=== PATIENT | female | born 1975 | race Caucasian/White ===

== ENCOUNTER → 2019-08-09 09:06 | Outpatient (CLI) | payer BC, SELFPAY ==
[2019-08-09 10:29] LABS: Hematocrit 42.5 % (37-47); Hemoglobin 13.6 g/dL (12.0-15.0); Mean Corpuscular Volume 93.6 fL (81-99); Mean Platelet Vol. 11.1 fl (6.2-12.0); Platelet Count 284 K/mm3 (150-450); Red Blood Count 4.54 M/mm3 (4.2-5.4); White Blood Count 11.2 K/mm3 (4.4-11.0)
[2019-08-09 10:46] LABS: ALB/GLOB Ratio 0.8 RATIO (0.9-2.4); AST(SGOT) 16 U/L (15-37); Alanine Aminotransfer ALT/SGPT 27 U/L (13-56); Albumin, Serum 3.3 g/dL (3.2-5.0); Alkaline Phosphatase 72 U/L (45-117); Anion Gap 6 (5-15); BUN 16 mg/dL (7-18); BUN/Creat Ratio 20.4 RATIO (10-20); Chloride 104 mmol/L (98-107); Cholesterol 213 mg/dL (200); Creatinine, Serum 0.79 mg/dL (0.55-1.02); EST Glomerular Filtration Rate 84 mL/min (>60); Est Glom Filt Rate - Afr Amer 101 mL/min (>60); Glucose 120 mg/dL (74-106); High Density Lipoprotein 40 mg/dL; Potassium 4.1 mmol/L (3.5-5.1); Protein, Total 7.3 g/dL (6.4-8.2); Sodium Level 136 mmol/L (136-145); Triglycerides 134 mg/dL; Very Low Density Lipoprotein 27 mg/dL (5-40)
== END ==
PROVIDERS: Family Provider Nurse Practitioner Family; PCP Nurse Practitioner Family; Referring Provider Nurse Practitioner Family; Visit Provider Nurse Practitioner Family
DX: G43.109 Migraine with aura, not intractable, without status migrainosus (principal); E78.5 Hyperlipidemia, unspecified
CPT/HCPCS: 36415; 80053; 80061; 85027

== ENCOUNTER → 2020-03-02 09:46 | Outpatient (CLI) | payer BC, SELFPAY ==
[2020-03-03 07:37] LABS: SARS-COV-2 TOTAL ABS Reactive (Nonreactive)
== END ==
PROVIDERS: PCP Nurse Practitioner Family; Referring Provider Nurse Practitioner Family; Visit Provider Nurse Practitioner Family
DX: U07.1 COVID-19 (principal)
CPT/HCPCS: 86769; G2023

== ENCOUNTER → 2020-10-15 08:54 | Outpatient (CLI) | payer BC, SELFPAY ==
[2020-08-27 09:08] VITALS: BMI 39.7
--- NOTE | 2020-10-15 08:56 | US_ITS ---
STUDY: ULTRASOUND BREAST - LEFT REASON FOR EXAM: Female, 45 years old. Pain in the left breast. TECHNIQUE: Axial and longitudinal images of the LEFT breast were performed with a high resolution ultrasound transducer. # OF IMAGES: 40 COMPARISON: Comparison is made with prior mammogram done earlier today. FINDINGS: LEFT Breast: The lateral half of the left breast was examined by ultrasound. No sonographic abnormality is seen. US/Breast Complete Unilateral IMPRESSION: No sonographic abnormality is seen. ASSESSMENT CATEGORY: BIRADS Category 1: Negative. A letter regarding these results will be sent to the patient by the facility within 30 days. Electronically Signed: Chino Pacheco MD at 15:16 EST , Service support ,
--- NOTE | 2020-10-15 08:56 | BI_ITS ---
MAMMOGRAPHY - BILATERAL DIAGNOSTIC REASON FOR EXAM: Female, 45 years old. Left lateral breast pain. PERTINENT HISTORY: Non-contributory. TECHNIQUE: Digital bilateral breast tracie (3D mammographic acquisition) in the CC and MLO projections. 2-D mediolateral oblique (MLO) and craniocaudad (CC) views of both breasts were obtained. CAD: Full Field Digital Mammography with Computer Added Detection was performed. COMPARISON: None. Baseline examination. FINDINGS: Breast Composition: The breasts are heterogeneously dense, which may obscure small masses. There are no dominant masses or suspicious calcifications. No other significant abnormalities are identified. BI/DIAG MAMM W/CAD, BILAT IMPRESSION: Negative diagnostic mammogram. With the patient''s history of left breast pain, correlation with ultrasound is recommended. ASSESSMENT CATEGORY: BIRADS Category 0: Incomplete. Need additional imaging evaluation. A letter regarding these results will be sent to the patient by the facility within 30 days. Approximately 10% of breast cancers are not detected by mammography. A normal mammogram should not delay biopsy of a clinically suspicious abnormality. Electronically Signed: Chino Pacheco MD at 10:58 EST , Service support ,
== END ==
PROVIDERS: PCP Nurse Practitioner Family; Referring Provider Nurse Practitioner Women's Health; Visit Provider Nurse Practitioner Women's Health
DX: N64.4 Mastodynia (principal)
CPT/HCPCS: 76641; 77062; 77066; G0279

== ENCOUNTER → 2021-01-21 16:25 | Outpatient (CLI) | payer BC, SELFPAY ==
[2021-01-21 13:23] VITALS: BMI 39.7
[2021-01-25 08:40] LABS: HPV APTIMA, High Risk Positive (Negative)
== END ==
PROVIDERS: PCP Nurse Practitioner Family; Visit Provider Nurse Practitioner Women's Health
DX: Z12.4 Encounter for screening for malignant neoplasm of cervix (principal)
CPT/HCPCS: 87624; 88175; G0145

== ENCOUNTER → 2021-01-26 10:18 | Outpatient (CLI) | payer BC, SELFPAY ==
[2021-01-21 13:23] VITALS: BMI 39.7
--- NOTE | 2021-01-26 10:20 | US_ITS ---
STUDY: ULTRASOUND OF THE FEMALE PELVIS - COMPLETE REASON FOR EXAM: Female, 45 years old. bleeding, cramping LMP: 01/05/2021 TECHNIQUE: Transabdominal and Transvaginal TECHNICAL QUALITY: Adequate. COMPARISON: None. FINDINGS: The uterus is retroflexed and is in a midline position. The uterus measures 9.5 x 7.7 x 6.5 cm. There is a Nabothian cyst of the cervix. The endometrium measures 11 mm in thickness, and is hyperechoic. There is no demonstrated endometrial mass. There is no demonstrated myometrial mass. I.U.D. - The patient does not have an I.U.D. The right ovary is visualized. The right ovary measures 2.2 x 2.3 x 2.5 cm. There is no right ovarian cyst or ovarian mass. There is no visualized right adnexal mass or complex lesion. There is normal arterial and normal venous vascularity. The left ovary is visualized. The left ovary measures 4.4 x 2.5 x 2.9 cm. There is no left ovarian cyst or ovarian mass. There is no visualized left adnexal mass or complex lesion. There is normal arterial and normal venous vascularity. There is no fluid in the cul-de-sac. The pre void volume of the bladder was ml. The post void volume of the bladder was ml. Polycystic ovary disease: No. US/Transvaginal Non- IMPRESSION: Normal female pelvis. Electronically Signed: Dileep Hart MD at 8:55 EDT Tel , Service support ,
--- NOTE | 2021-01-26 10:20 | US_ITS ---
STUDY: ULTRASOUND OF THE FEMALE PELVIS - COMPLETE REASON FOR EXAM: Female, 45 years old. bleeding, cramping LMP: 01/05/2021 TECHNIQUE: Transabdominal and Transvaginal TECHNICAL QUALITY: Adequate. COMPARISON: None. FINDINGS: The uterus is retroflexed and is in a midline position. The uterus measures 9.5 x 7.7 x 6.5 cm. There is a Nabothian cyst of the cervix. The endometrium measures 11 mm in thickness, and is hyperechoic. There is no demonstrated endometrial mass. There is no demonstrated myometrial mass. I.U.D. - The patient does not have an I.U.D. The right ovary is visualized. The right ovary measures 2.2 x 2.3 x 2.5 cm. There is no right ovarian cyst or ovarian mass. There is no visualized right adnexal mass or complex lesion. There is normal arterial and normal venous vascularity. The left ovary is visualized. The left ovary measures 4.4 x 2.5 x 2.9 cm. There is no left ovarian cyst or ovarian mass. There is no visualized left adnexal mass or complex lesion. There is normal arterial and normal venous vascularity. There is no fluid in the cul-de-sac. The pre void volume of the bladder was ml. The post void volume of the bladder was ml. Polycystic ovary disease: No. US/Pelvic (Non ) IMPRESSION: Normal female pelvis. Electronically Signed: Dileep Hart MD at 8:55 EDT Tel , Service support ,
== END ==
PROVIDERS: PCP Nurse Practitioner Family; Referring Provider Nurse Practitioner Women's Health; Visit Provider Nurse Practitioner Women's Health
DX: N94.6 Dysmenorrhea, unspecified (principal); N92.0 Excessive and frequent menstruation with regular cycle
CPT/HCPCS: 76830; 76856

== ENCOUNTER → 2021-03-14 | Outpatient (CLI) | payer BC, SELFPAY ==
[2021-03-14 13:18] VITALS: BMI 36.3
--- NOTE | 2021-03-14 13:30 | CER_PTH ---
PATIENT: BERNARD BARRETO LOC: [facility]#:[id number] AGE/SX: 45/F ROOM: RE03/14/[address]: Dr. Tressa Gonzalez MD : 1975 BED: DIS: 03/14/2021 SPEC #: [id number] RECD: 03/14/21 15:06 STATUS: BRIAN REChandni #: [id number] CARMEL: 03/14/21 13:[address]: Tressa Gonzalez DEPT: SURGICAL PATHOLOGY RECD BY: Enid Gauthier ENTERED: 03/15/21 09:10 SP TYPE: CERV OTHR DR: Aria Quintero, PATIENT PARTNER-C Tissues: A - Endocervical B - Uterine cervix, NOS Procedures: Surgery Specimen Level IV HEADER OPERATION: Colposcopy PRE-OP DIAGNOSIS: ASCUS HPV positive TISSUE SUBMITTED: A ? ECC, B ? 11 o?clock MICROSCOPIC DIAGNOSIS A. ECC: A few fragments of squamous epithelium, no pathologic diagnosis. Negative for dysplasia. B. Cervix, 11 o?clock, biopsy: A fragment of squamous mucosa, negative for dysplasia. See comment. CRISTINE:pedro 03/18/2021 COMMENT B. Transition zone mucosa is not seen. Clinical correlation and appropriate follow up are necessary. MICROSCOPIC DESCRIPTION Slides are reviewed. GROSS DESCRIPTION A - Received in fixative is one container labeled with the patient's name and designated ECC. The specimen consists of a scant amount of soft tissue. The specimen is totally submitted for cell block preparation. B - Received in fixative is one container labeled with the patient's name and designated 11 o'clock. The specimen consists of one irregular fragment of light mckinnon soft tissue that measures 0.5 x 0.4 x 0.2 cm. The specimen is totally submitted in one cassette. / CRISTINE:pedro 03/15/21 TC:4 CPT: 08174 x2
== END | disposition home or self-care (01) ==
LOC: LABSPEC 15:20
PROVIDERS: PCP Nurse Practitioner Family; Referring Provider Obstetrics & Gynecology; Visit Provider Obstetrics & Gynecology
DX: R87.610 Atypical squamous cells of undetermined significance on cytologic smear of cervix (ASC-US) (principal)
CPT/HCPCS: 88305

== ENCOUNTER → 2022-02-11 | Outpatient (CLI) | payer BC, SELFPAY ==
--- NOTE | 2022-02-11 10:20 | CT_ITS ---
STUDY: CTA CHEST REASON FOR EXAM: Female, 46 years old. PULMONARY EMBOLISM, BILATERAL RADIATION DOSAGE (If Supplied By Facility): CTDIvol = ( 10.74 ) mGy, DLP = ( 477.88 ) mGycm TECHNIQUE: The examination was performed with the intravenous administration of IV 75mL Isovue-370. Post-processing of the angiographic images was performed, with multiplanar reformation and 3D reconstruction. Individualized dose optimization techniques were used for this CT. COMPARISON: None. FINDINGS: Normal enhancement of the main pulmonary artery and right and left pulmonary arteries. Normal enhancement of the bilateral peripheral pulmonary arteries. There is no demonstrated pulmonary embolism. Normal thoracic aorta and visualized great vessels. There is no demonstrated aortic dissection. Normal heart and pericardium. Normal mediastinum. Normal hilar regions. Normal visualized trachea and bronchi. The lungs are well expanded. Normal pulmonary parenchyma. Normal pleura. Normal chest wall structures. Normal osseous structures. Normal visualized upper abdomen. CT/CTA Chest W/WO Contrast IMPRESSION: Normal CTA chest examination, without a demonstrated pulmonary embolism or arterial dissection. Electronically Signed: Dileep Hart MD at 14:09 EDT ,
== END | disposition home or self-care (01) ==
LOC: CT 10:17
PROVIDERS: PCP Nurse Practitioner Family; Visit Provider Nurse Practitioner Family
DX: I26.99 Other pulmonary embolism without acute cor pulmonale (principal)
CPT/HCPCS: 71275; Q9967

== ENCOUNTER 2022-05-13 08:15 | Day surgery (SDC) | payer BC, SELFPAY ==
--- NOTE | 2022-05-07 16:29 | EKG12_ITS ---
Test Reason : PRE-OP Blood Pressure : / mmHG Vent. Rate : 059 BPM Atrial Rate : 059 BPM P-R Int : 146 ms QRS Dur : 090 ms QT Int : 410 ms P-R-T Axes : 054 048 033 degrees QTc Int : 405 ms Sinus bradycardia Otherwise normal ECG Confirmed by MANDY BOYD, CLAYTON ([id number]), graphics editor MONIK CHEN ([id number]) on 05/08/2022 10:00:39 AM Referred By: Aria Quintero Confirmed By:CLAYTON GALVAN MD
--- NOTE | 2022-05-07 16:40 | RAD_ITS ---
STUDY: X-RAY CHEST REASON FOR EXAM: Female, 47 years old. PREOP TECHNIQUE: PA and lateral views of the chest. COMPARISON: None. FINDINGS: The lungs are clear and expanded. There is no demonstrated pleural abnormality. Normal size heart. Normal mediastinum and milo. Normal visualized pulmonary arteries. Normal visualized aortic arch and descending thoracic aorta. Normal visualized thoracic spine. Normal visualized ribs, clavicles, and shoulders. There is no demonstrated abnormality of the visualized soft tissue structures of the upper abdomen. RAD/Chest PA and Lateral IMPRESSION: Normal x-ray examination of the chest. Electronically Signed: Dileep Hart MD at 16:52 EDT ,
[2022-05-07 17:26] LABS: Absolute Lymphocyte Count 2.59 X10^3/uL (0.83-4.51); Absolute Neutrophil Count 4.5 X10^3/uL (2.0-7.7); Basophil# 0.04 X10^3/uL; Basophil% 0.5 % (0-1); Eosinophil# 0.19 X10^3/uL; Eosinophils% 2.4 % (0-5); Hematocrit 41.4 % (37-47); Hemoglobin 14.1 g/dL (12.0-15.0); Lymphocyte # 2.59 X10^3/ul (0.83-4.51); Lymphocyte % 32.5 % (19-41); Mean Corp Hgb Conc 34.1 g/dL (32-36); Mean Corpuscular Hgb 31.1 pg (27.0-32.0); Mean Corpuscular Volume 91.2 fL (81-99); Monocyte% 7.5 % (0-10); NRBC Flagged by Analyzer 0 % (0-5); Neutrophil # 4.53 X10^3/uL (2.7-7.7); Neutrophil % 56.7 % (47-70); Platelet Count 254 K/mm3 (150-450); RBC Distribution Width CV 12.1 % (11.6-14.6); RBC Distribution Width SD 40.4 fl (35.1-43.9); Red Blood Count 4.54 M/mm3 (4.2-5.4)
[2022-05-07 17:58] LABS: ALB/GLOB Ratio 0.9 RATIO (0.9-2.4); AST(SGOT) 52 U/L (15-37); Alanine Aminotransfer ALT/SGPT 65 U/L (13-56); Albumin, Serum 3.5 g/dL (3.2-5.0); Alkaline Phosphatase 61 U/L (45-117); Anion Gap 10 (5-15); BUN 11 mg/dL (7-18); BUN/Creat Ratio 12.9 RATIO (10-20); Calcium,Total 9.2 mg/dL (8.5-10.1); Chloride 103 mmol/L (98-107); Creatinine, Serum 0.86 mg/dL (0.55-1.02); EST Glomerular Filtration Rate 75 mL/min (>60); Est Glom Filt Rate - Afr Amer 91 mL/min (>60); Globulin 3.7 g/dL (2.2-4.2); Glucose 114 mg/dL (74-106); Potassium 4.2 mmol/L (3.5-5.1); Protein, Total 7.2 g/dL (6.4-8.2); Sodium Level 139 mmol/L (136-145)
[2022-05-07 19:10] LABS: D-Dimer Quantitative (DVT/PE) 1.94 FEU/ug/m (0.27-0.49)
[2022-05-08 12:29] LABS: Magnesium 2.1 mg/dL (1.6-2.6)
--- NOTE | 2022-05-12 13:23 | HP.PCM_ITS ---
History and Physical Date of Admission: 05/13/22 MR#: [id number] Acct: [id number] Name:?? BERNARD BARRETO Rep #: [id number] :? 1975 ?? ? Provider: Dr. Mary Lopez, DO Age/Sex:?? 47/F ? Location: [facility] [place] Status: Signed Intake Vital Signs ? 04/23/2208:25 04/23/2208:27 Height 5 ft 3 in 5 ft 3 in Weight: 197 lb 8 oz ? BMI 34.9 ? BP 131/84 H ? Intake Visit Reasons:?TVH Chief Complaint: 2w incision check Child Welfare Director Required: No Is patient in pain?: No Allergies No Known Allergies Allergy (Verified 04/23/22 08:25) Medications atenolol 25 mg tablet 25 mg PO DAILY 01/21/21 [History Confirmed 04/23/22] fluoxetine 20 mg capsule 20 mg PO DAILY 01/21/21 [History Confirmed 04/23/22] ondansetron HCl 4 mg tablet (Zofran) 4 mg PO Q8H PRN 01/21/21 [History Confirmed 04/23/22] spironolactone 100 mg tablet 100 mg PO DAILY 01/21/21 [History Confirmed 04/23/22] sumatriptan succinate 25 mg tablet See Rx Instructions PO .COMPLEX 01/21/21 [History Confirmed 04/23/22] norethindrone acetate 5 mg tablet 5 mg PO TID PRN heavy bleeding? 30 days #90 tabs 08/02/21 [Rx Confirmed 04/23/22] norethindrone acetate 5 mg tablet (Aygestin) 5 mg PO .COMPLEX #45 tabs 08/23/21 [Rx Confirmed 04/23/22] apixaban 5 mg tablet (Eliquis) 5 mg PO BID 04/23/22 [History Confirmed 04/23/22] Post menopausal: No Patient : No : No PFSH Medical History?(Updated 04/23/22 @ 08:35 by Helga Hernández) ASCUS with positive high risk HPV Depression Dysmenorrhea Enlarged uterus History of pulmonary embolism HTN (hypertension) Migraines Mitral valve prolapse Surgical History? H/O LEEP Social History? household members:? spouse and children? number of children:? 3? current occupational status:? employed? 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 history of recent travel:? No? sexually active:? Yes? Smoking Status:? Never smoker? alcohol intake:? current alcohol intake frequency: a few times a month? substance use type:? does not use? what type of physical activity do you participate in:? none? seatbelt use:? always? do you feel safe at home:? Yes? additional social history:? - Bakari? [facility] Details:? BERNARD BARRETO is a 47 year old who presents for a preop total robotic hysterectomy bilateral salpingectomy cystoscopy. She was on norethindrone ( and still is) when she experienced a pulmonary embolism. She states that she is on blood thinners now x 6 months and will have further imaging of her chest. If clots are gone she will be taken off the medication. She is requesting d efinitive treatment for her bleeding. SHe has a h/o 3 prior vaginal deliveries. Her uterus measures 9 cm and there are no ovarian masses or cysts. No fibroids noted. She took OCPs for over 20 years prior to the of her child, who is now 16 so it is unknown if the norethindrone caused the PE or is related to past covid infection.? She will see her PCP to help bridge Eliquis to heparin for surgery.? ROS Const ROS Unobtainable: All systems reviewed & are unremarkable except as noted in H ENT ENT: Reports system reviewed and no additional complaints, except as documented Cardio Card: Reports system reviewed and no additional complaints, except as documented Resp Resp: Denies cough, dyspnea or dyspnea on exertion GI GI: Denies abdominal pain, bloating or change in bowel habits : Denies vaginal odor or vaginal pruritus Details:? lochia is mild? Musc Musc: Reports system reviewed and no additional complaints, except as documented Psych Psych: Reports system reviewed and no additional complaints, except as documented Exam Const General: cooperative, healthy appearing and comfortable Neck Neck: normal visual inspection Chest Chest palpation & inspection: normal inspection of the chest Resp Effort & Inspection: normal respiratory effort GI Inspection: normal to inspection and non-distended Palpation: soft and nontender Rectal Exam: other Other:? incision is clean, dry, intact? Other:? exam deferred today Skin General: no rashes or lesions noted Neuro General: patient alert, patient awake and patient oriented x3 Extrem General: no edema Psych Appearance: grossly normal Speech and Movement: speech and movement normal Coding Level of Care Code Off vis,est,level 5 Diagnoses Enlarged uterus? N85.2 Dysmenorrhea? N94.6 Menorrhagia with regular cycle? N92.0 Assessment and Plan Assessment and Plan (1) Enlarged uterus:?Status:?Acute (2) Dysmenorrhea:?Status:?Acute (3) Menorrhagia with regular cycle:?Status:?Acute Plan After discussing the patient's diagnosis and treatment plan options, patient wishes to proceed with surgical management.? Due to the patient's mild obesity and her history of PE with subsequent treatment with Eliquis the decision was made to proceed with a robotic hysterectomy rather than a vaginal hysterectomy to ensure adequate hemostasis during the procedure and for better visualization due to obesity.? ?I have discussed with the patient the risks, benefits, and alternatives of the procedure which include but are not limited to risks of anesthesia, bleeding, infection, possible damage to bowel, bladder, or surrounding vasculature which could lead to additional surgery to evaluate any complications.? Patient agrees to procedure and wishes to proceed.? ACOG/uptodate references given for additional information regarding procedure.?? The patient's primary provider for Eliquis recommends to stop the medication 2 days before the day of surgery and to resume 24 hours after hemostasis is achieved. UPDATE- I have seen the patient and performed any clinically relevant updates to the history and physical exam. Mary Lopez, DO
[2022-05-13] VITALS (11 sets, daily range): BP systolic 114–141; BP diastolic 61–85; PULSE 62–82; RESP 16–18; TEMP 36.3–36.5; O2SAT 97–100; BMI 35.2
--- NOTE | 2022-05-13 | HYST_PTH ---
PATIENT: BERNARD BARRETO LOC: [facility] [place] U#:[id number] AGE/SX: 47/F ROOM: RE05/13/[address]: Dr. Mary Lopez DO : 1975 BED: DIS: 05/13/2022 SPEC #: [id number] RECD: 05/13/22 13:23 STATUS: BRIAN BRANDEN #: [id number] CARMEL: 05/13/22 00:[address]: Mary Lopez DEPT: SURGICAL PATHOLOGY RECD BY: Nolberto Rinaldi ENTERED: 05/13/22 13:23 SP TYPE: HYSTERECT OTHR DR: Aria Quintero, FUNERAL HOME DIRECTOR-C Tissues: Uterus, NOS Procedures: Surgery Specimen Level V HEADER OPERATION: ERAS, lap robotic hysterectomy, bilateral salpingectomy PRE-OP DIAGNOSIS: Enlarged uterus, dysmenorrhea, menorrhagia TISSUE SUBMITTED: Cervix, uterus, bilateral fallopian tubes MICROSCOPIC DIAGNOSIS Uterus, hysterectomy: Cervix ? nabothian cysts, squamous metaplasia and mild chronic inflammation. Endometrium ? transition endometrium with focal cystic change. Myometrium ? leiomyomas and adenomyosis. Right and left fallopian tubes - No pathologic change. AM:pedro 05/14/2022 MICROSCOPIC DESCRIPTION Slides are reviewed. GROSS DESCRIPTION Received in fixative is one container labeled with the patient's name and designated uterus. The specimen consists of a uterus with attached cervix and attached right and left fallopian tubes. The uterus with cervix measures 12 x 8 x 6.5 cm and weighs 213 gm. The ectocervix is unremarkable. The cervical os is oval in contour. The endocervical canal measures 4 cm in length and is grossly unremarkable. The triangular endometrial cavity measures 4.5 x 4.5 cm. The light mckinnon endometrium measures up to 0.2 cm in thickness. The myometrium measures 3 cm in greatest thickness and contains multiple rubbery white-mckinnno nodules ranging in size from 0.6 to 1 cm. The right and left fallopian tubes are similar in appearance with average lengths of 6 cm and average diameters of 0.6 cm. No distinct fimbriated end is identified in the left fallopian tube. Wood Buffer sections are submitted in nine cassettes as follows: 1 - anterior cervix, 2 - posterior cervix, 3 & 4 - anterior uterine wall, 5 & 6 - posterior uterine wall, 7 - myometrial nodules, 8 - right fallopian tube, 9 - left fallopian tube. / AM:pedro 05/13/2022 TC:1 CPT: 99971
[2022-05-13 08:40] LABS: Internal QC Validated? YES +Cl - CLEAR BKGD; Pregnancy, Urine Negative Negative
[2022-05-13] MEDS: Gabapentin 600 MG Tablet PO (08:45)
[2022-05-13] MEDS: Acetaminophen 500 MG Tablet 1000 MG PO (08:45)
[2022-05-13] MEDS: Lactated Ringers 1,000 ML 40 ML IV (08:45)
[2022-05-13] MEDS: Celecoxib 200 MG Capsule 400 MG PO (08:45)
--- NOTE | 2022-05-13 09:01 | PCM.DC ---
Discharge Instructions Diet Discharge Diet: No restrictions Activity May resume sexual activity in: 6 weeks Weight Bearing Status: Full weight bearing Dressing / Incision Call your doctor if your incision/area has: Continuous Slow Oozing, Sudden Increased Bleeding, Increased Pain/ Swelling, Increased Redness and Foul Smelling Discharge Call your doctor if you observe: Fever of 101 or Higher, Using more than 1 pad per hour, Shortness of breath, Chest pain and Uncontrolled pain Suture Line Care: Avoid Pulling/Pushing and Avoid Pinching/Bending Remove Dressing in: 1 week (if present) Cleanse incision/area with: Soap & Water and Keep Dressing Clean & Dry Follow Up Care Please Follow Up With: Mary Lopez DO When: Call to make an appointment with your doctor for a postop visit in 2 and 6 weeks Test Results: Test results from this visit will be discussed in further detail at your follow-up appointment, if applicable. Discharge Plan Admission Primary Reason for Your Visit: hysterectomy Attending Provider: Mary Lopez Primary Care Provider: Aria Quintero NP Discharge Orders/Prescriptions Prescriptions: New ibuprofen 600 mg tablet 600 mg PO Q6H PRN (Reason: pain) 7 Days Qty: 28 0RF Rx Instructions: one tab every 6 hrs as needed for mild to moderate pain oxycodone-acetaminophen [Percocet] 5-325 mg tablet 1 tab PO Q4H PRN (Reason: pain) 7 Days Qty: 30 0RF Continued spironolactone 100 mg tablet 100 mg PO DAILY atenolol 25 mg tablet 25 mg PO DAILY fluoxetine 20 mg capsule 20 mg PO DAILY sumatriptan succinate 25 mg tablet See Rx Instructions PO .COMPLEX Rx Instructions: take 1 tab at onset of headache; if no relief may repeat 1 tab after at least 2 hrs; max = 4 tabs/24 hr PO ondansetron HCl [Zofran] 4 mg tablet 4 mg PO Q8H PRN (Reason: Nausea) Eliquis 5 mg tablet 5 mg PO BID Qty: 60 0RF Rx Instructions: start on post op day #2 () Discontinued norethindrone acetate 5 mg tablet 5 mg PO TID PRN (Reason: heavy bleeding ) 30 Days Qty: 90 3RF Rx Instructions: take 3 times a day until bleeding stops during menses only as needed for heavy bleeding norethindrone acetate [Aygestin] 5 mg tablet 5 mg PO .COMPLEX Qty: 45 0RF Rx Instructions: 5 mg PO tid until bleeding stops X 24 hr then bid to finish Rx Referrals / Follow Up: Aria Quintero NP, MARKETING CAMPAIGN ANALYST-C [Primary Care Provider] - Disposition Disposition (needs filled in before D/C Order can be placed): Home, Self Care
[2022-05-13] MEDS: Insulin Lispro 100 UNIT/ML INSULN.PEN SC (09:03)
[2022-05-13] MEDS: Cefazolin 2 GM in 0.9% Normal Saline 100 ML IV (09:20)
[2022-05-13] MEDS: Ondansetron 4 MG/2 ML Vial IV (09:23)
[2022-05-13 09:35] LABS: Bedside Glucose 213 mg/dL (74-106)
[2022-05-13] MEDS: Bupivacaine 0.25% 30 ML Vial (09:55)
[2022-05-13] MEDS: Lactated Ringers @ 40 MLS/HR 40 ML IV (10:31)
--- NOTE | 2022-05-13 10:47 | PCM.OP.BLANK ---
Problems Associated Problem List Diagnoses (1) Menorrhagia with regular cycle: (2) ASCUS with positive high risk HPV cervical: (3) Enlarged uterus: (4) Dysmenorrhea: Operative Report Date of Procedure: 05/13/22 Preoperative diagnosis:menorrhagia, on anticoagulants, enlarged uterus Postoperative diagnosis: menorrhagia, on anticoagulants, enlarged uterus Procedure: Total robotic hysterectomy bilateral salpingectomy Anesthesia: General endotracheal intubation Estimated blood loss: 30cc Urine output: 125cc Drains: None Implanted material: None Complications: None Findings: 10 cm size uterus, normal appearing ovaries and tubes. On exploration of the abdominal cavity the uterus, adnexa, bowel, and liver were found to be normal. Specimens removed: Uterus and cervix, [Bilateral tubes and ovaries] Reason for surgery: This is a 47-year-old who presented to my office with history of menorrahgia, and an enlarged uterus. She is not a candidate for conservative hormonal therapy due to current use of anticoagulation due to PE earlier this year. the planned procedure is for a robotic hysterectomy the risks benefits and alternatives were discussed with the patient the patient had a clear understanding of the procedure and a consent form was signed. Procedure: The patient was placed in the dorsal low lithotomy position and prepped and draped in the normal sterile fashion both abdominally and in the perineum. Her legs were placed in stirrups a Mcmahon catheter was inserted into the urethra without difficulty. A weighted speculum was placed in the vagina and a single-tooth tenaculum was used to grasp the anterior lip of the cervix. An advincula uterine manipulator was inserted through the cervix without complication. It was then tied into place at the 2 and 10:00 locations on the cervix. Gloves were changed and attention was turned towards the abdomen. Approximately 23 cm above the pubic symphysis in the midline, and after Marcaine injection, a 8 mm incision was made. An 8 mm trocar was inserted through the laparoscope, then inserted into the abdomen under direct visualization using the laparoscope. Good abdominal placement was noted and no complications were appreciated. An air seal device was utilized to create pneumoperitoneum. At 12 cm lateral to the midline on the left and right sides 8 mm accessory ports were placed. Next a left upper quadrant 8 mm assistant guest services manager port site was placed. The patient was placed in steep Trendelenburg position. The robot was docked. The hysterectomy was initiated first by taking down the round ligament on each side using the vessel sealer device. The fallopian tubes were removed with the vessel sealer device but cauterizing the mesosalpinx. The broad ligament was then and taken down using the vessel sealer device. Next the bladder flap was taken down without complication. This was done using monopolar cautery to the level of the cervical vaginal junction. After the bladder flap was created, uterine vessels were then isolated and cauterized using the vessel sealer device and EndoShears. At this point the uterine vessels were taken down further starting from the ascending branch, dissecting along the edges of the cervix to the level of the cervical vaginal junction with hemostasis appreciated. The cervical vaginal junction was then using monopolar cautery in a circumferential pattern across the superior aspect of the cervix. The specimen was delivered through the vagina and sent to pathology. The remaining vaginal cuff was then closed using OV lock suture. This was performed in a running technique. Excellent hemostasis was obtained and good closure was noted. Irrigation was then performed. All operative sites were noted to be hemostatic. The abdominal cavity was again examined using the laparoscope after the robot was undocked. All operative sites were noted to be hemostatic. The trochars were removed under direct visualization without complication and pneumoperitoneum was reduced. At this point the skin was then closed using 4-0 Monocryl subcuticular stitch and sealed with surgical glue. The patient tolerated the procedure well sponge lap and needle counts were correct x2 the patient was taken to the recovery room in stable condition. Multi Select Codes Urinary/Genital Urinary/Genital CPT Codes: 10692 TLH+BS/O <250gr uterus
[2022-05-13 11:40] LABS: Bedside Glucose 157 mg/dL (74-106)
== END 2022-05-13 14:53 | disposition home or self-care (01) ==
LOC: SDC 08:17 → AC 08:17
PROVIDERS: Anesthesiology; Obstetrics & Gynecology; PCP Nurse Practitioner Family; Referring Provider Obstetrics & Gynecology; Visit Provider Obstetrics & Gynecology
PROC: 0UT90ZZ Resection of Uterus, Open Approach (ICD-10-PCS; CPT 58571; principal; 2022-05-13 09:50)
DX: N87.0 Mild cervical dysplasia (principal); D25.9 Leiomyoma of uterus, unspecified; N80.0 Endometriosis of uterus; N88.8 Other specified noninflammatory disorders of cervix uteri; I34.1 Nonrheumatic mitral (valve) prolapse; F32.A Depression, unspecified; I10 Essential (primary) hypertension; Z79.899 Other long term (current) drug therapy; Z86.711 Personal history of pulmonary embolism; Z79.01 Long term (current) use of anticoagulants; N92.0 Excessive and frequent menstruation with regular cycle; N85.2 Hypertrophy of uterus
CPT/HCPCS: 58571; 36415; 71046; 80053; 81025; 82962; 83735; 85025; 85379; 86850; 86900; 86901; 88307; 93005; J7120; J2405; J3475

== ENCOUNTER → 2022-05-23 | Outpatient (CLI) | payer BC, SELFPAY | END | disposition home or self-care (01) | LOC: LABSPEC 13:00 | PROVIDERS: PCP Nurse Practitioner Family; Visit Provider Obstetrics & Gynecology | DX: R30.0 Dysuria (principal) | CPT/HCPCS: 87086; 87088 ==

== ENCOUNTER → 2023-07-09 | Outpatient (CLI) | payer BC, SELFPAY ==
[2023-07-09 17:42] LABS: Absolute Neutrophil Count 3.8 X10^3/uL (2.0-7.7); Basophil# 0.05 X10^3/uL; Basophil% 0.6 % (0-1); Eosinophil# 0.22 X10^3/uL; Eosinophils% 2.8 % (0-5); Hematocrit 42.7 % (37-47); Hemoglobin 13.9 g/dL (12.0-15.0); Lymphocyte % 37.3 % (19-41); Mean Corp Hgb Conc 32.6 g/dL (32-36); Mean Corpuscular Hgb 30.3 pg (27.0-32.0); Mean Corpuscular Volume 93.2 fL (81-99); Mean Platelet Vol. 10.8 fl (6.2-12.0); Monocyte# 0.77 X10^3/uL; Monocyte% 9.9 % (0-10); NRBC Flagged by Analyzer 0 % (0-5); Neutrophil # 3.79 X10^3/uL (2.7-7.7); Neutrophil % 48.9 % (47-70); Platelet Count 247 K/mm3 (150-450); RBC Distribution Width CV 12.2 % (11.6-14.6); RBC Distribution Width SD 41.6 fl (35.1-43.9); Red Blood Count 4.58 M/mm3 (4.2-5.4); White Blood Count 7.8 K/mm3 (4.4-11.0)
[2023-07-09 18:21] LABS: ALB/GLOB Ratio 0.9 RATIO (0.9-2.4); AST(SGOT) 52 U/L (15-37); Alanine Aminotransfer ALT/SGPT 79 U/L (13-56); Albumin, Serum 3.7 g/dL (3.2-5.0); Alkaline Phosphatase 79 U/L (45-117); Anion Gap 4 (5-15); BUN 7 mg/dL (7-18); BUN/Creat Ratio 8.1 RATIO (10-20); Calcium,Total 9.3 mg/dL (8.5-10.1); Chloride 104 mmol/L (98-107); Cholesterol 221 mg/dL (200); Creatinine, Serum 0.87 mg/dL (0.55-1.02); EST Glomerular Filtration Rate 74 mL/min (>60); Est Glom Filt Rate - Afr Amer 89 mL/min (>60); Glucose 165 mg/dL (74-106); High Density Lipoprotein 39 mg/dL; Magnesium 2.3 mg/dL (1.6-2.6); Potassium 3.5 mmol/L (3.5-5.1); Protein, Total 7.7 g/dL (6.4-8.2); Sodium Level 136 mmol/L (136-145); Thyroid Stim Hormone (TSH) 1.08 uIU/mL (0.358-3.74); Triglycerides 158 mg/dL; Very Low Density Lipoprotein 32 mg/dL (5-40)
[2023-07-09 19:04] LABS: Hemoglobin A1c 7.8 % (3.8-5.6)
[2023-07-10 07:46] LABS: Vitamin B12 697 pg/mL (211-911); Vitamin D,25 Hydroxy 40.2 ng/mL
== END | disposition home or self-care (01) ==
LOC: MFPLAB 14:59
PROVIDERS: PCP Family Medicine; Visit Provider Family Medicine
DX: I10 Essential (primary) hypertension (principal); F32.A Depression, unspecified
CPT/HCPCS: 36415; 80053; 80061; 82306; 82607; 83036; 83735; 84443; 85025

== ENCOUNTER → 2023-09-07 | Outpatient (CLI) | payer BC, SELFPAY ==
[2023-09-07 10:54] LABS: Mucous, Urine 0 SEEN /hpf (<or=2+); White Blood Cells 0 SEEN /hpf (0-5)
[2023-09-07 11:08] LABS: Color, Urine Red (Yellow); Glucose, Dipstick 100 mg/dl (Normal); Ketone-Dipstick Negative (Negative); Leukocyte Esterase-Dipstick Negative /ul (Negative); Nitrite-Dipstick Positive (Negative); Occult Blood-Urine 150 /ul (Negative); Protein-Dipstick 100 mg/dl (Negative); Urine Bilirubin Dipstick 3 mg/dL (Negative); Urine Clarity Cloudy (Clear); Urine Urobilinogen 4 mg/dl (Normal); Urine pH 6.5 (5.0 - 8.0)
[2023-09-07 11:25] LABS: Bacteria 2+ /hpf (None Seen); Red Blood Cells-Urine 10-25 SEEN /hpf (0-5); Squamous Epithelial Cells - UA 0-5 SEEN /hpf (5-10)
== END | disposition home or self-care (01) ==
LOC: LABSPEC 10:41
PROVIDERS: PCP Family Medicine; Referring Provider Nurse Practitioner Family; Visit Provider Nurse Practitioner Family
DX: R30.0 Dysuria (principal)
CPT/HCPCS: 81001; 87077; 87086; 87088; 87186

== ENCOUNTER → 2024-09-05 | Outpatient (CLI) | payer BC, SELFPAY ==
[2024-09-05 17:41] LABS: Absolute Lymphocyte Count 2.14 X10^3/uL (0.83-4.51); Absolute Neutrophil Count 6.2 X10^3/uL (2.0-7.7); Basophil# 0.03 X10^3/uL; Basophil% 0.3 % (0-1); Eosinophil# 0.11 X10^3/uL; Eosinophils% 1.2 % (0-5); Hematocrit 42.3 % (37-47); Hemoglobin 13.7 g/dL (12.0-15.0); Lymphocyte # 2.14 X10^3/ul (0.83-4.51); Lymphocyte % 23.8 % (19-41); Mean Corp Hgb Conc 32.4 g/dL (32-36); Mean Corpuscular Hgb 30.7 pg (27.0-32.0); Mean Corpuscular Volume 94.8 fL (81-99); Mean Platelet Vol. 10.8 fl (6.2-12.0); Monocyte# 0.51 X10^3/uL; Monocyte% 5.7 % (0-10); NRBC Flagged by Analyzer 0 % (0-5); Neutrophil # 6.16 X10^3/uL (2.7-7.7); Neutrophil % 68.6 % (47-70); Platelet Count 284 K/mm3 (150-450); RBC Distribution Width CV 12.3 % (11.6-14.6); RBC Distribution Width SD 42.6 fl (35.1-43.9); Red Blood Count 4.46 M/mm3 (4.2-5.4)
[2024-09-05 18:53] LABS: AST(SGOT) 24 U/L (15-37); Alanine Aminotransfer ALT/SGPT 35 U/L (13-56); Albumin, Serum 3.4 g/dL (3.2-5.0); Alkaline Phosphatase 76 U/L (45-117); Anion Gap 3 (5-15); BUN 8 mg/dL (7-18); BUN/Creat Ratio 10.2 RATIO (10-20); Calcium,Total 9.2 mg/dL (8.5-10.1); Chloride 107 mmol/L (98-107); Cholesterol 225 mg/dL (200); Creatinine, Serum 0.78 mg/dL (0.55-1.02); EST Glomerular Filtration Rate 82 mL/min (>60); Est Glom Filt Rate - Afr Amer 99 mL/min (>60); Globulin 3.4 g/dL (2.2-4.2); Glucose 121 mg/dL (74-106); Hemoglobin A1c 6.3 % (3.8-5.6); High Density Lipoprotein 49 mg/dL; Potassium 4.2 mmol/L (3.5-5.1); Protein, Total 6.8 g/dL (6.4-8.2); Sodium Level 137 mmol/L (136-145); Triglycerides 159 mg/dL; Very Low Density Lipoprotein 32 mg/dL (5-40)
== END | disposition home or self-care (01) ==
LOC: MFPLAB 14:49
PROVIDERS: PCP Family Medicine; Referring Provider Family Medicine; Visit Provider Family Medicine
DX: Z12.11 Encounter for screening for malignant neoplasm of colon (principal); E11.9 Type 2 diabetes mellitus without complications; I10 Essential (primary) hypertension
CPT/HCPCS: 36415; 80053; 80061; 83036; 85025

== ENCOUNTER → 2024-11-04 | Outpatient (CLI) | payer BC, SELFPAY ==
--- NOTE | 2024-11-04 13:19 | BI_ITS ---
PROCEDURE: SCRN MAMM (CAD)W/TAHIR BILAT REASON FOR EXAM: F, Age 49 y/o, presents for annual screening mammogram. No family history of breast cancer. TECHNIQUE: Bilateral screening digital breast tomosynthesis with 2D and 3D images. Computer aided detection. COMPARISON: 10/15/2020 FINDINGS: The breasts are heterogeneously dense which may obscure small masses. The mammogram demonstrates that the patient has dense breasts. Supplemental screening with whole breast ultrasound or MRI may be considered for further evaluation. No suspicious masses, areas of developing architectural distortion, or suspicious calcifications. BI/SCRN MAMM (CAD)W/TAHIR BILAT IMPRESSION: There is no mammographic evidence of malignancy in either breast. BI-RADS 1: NEGATIVE. RECOMMEND ANNUAL MAMMOGRAPHIC SCREENING. Follow-up code: Routine Follow-up The patient will be notified of the results by letter. Reading Location: [id number]
== END | disposition home or self-care (01) ==
LOC: OPBI 13:17
PROVIDERS: PCP Family Medicine; Referring Provider Obstetrics & Gynecology; Visit Provider Obstetrics & Gynecology
DX: Z12.31 Encounter for screening mammogram for malignant neoplasm of breast (principal)
CPT/HCPCS: 77063; 77067

== ENCOUNTER → 2025-01-19 | Outpatient (CLI) | payer BC, SELFPAY ==
--- NOTE | 2025-01-19 10:53 | MRI_ITS ---
EXAM: MRI left shoulder without contrast CLINICAL HISTORY: Pain COMPARISON: None TECHNIQUE: T1, T2, PD, multiplanar multisequence images through the left shoulder were obtained without contrast. FINDINGS: There is no evidence of muscular atrophy. The coracoacromial, coracoclavicular, and coracohumeral ligaments are intact. There is mild distal supraspinatus tendinopathy without tear or retraction. The infraspinatus appears intact. The subscapularis and teres minor appear intact. The biceps tendon and labrum are normal in appearance. There is no significant joint effusion or abnormal fluid collection. There is thickening of the inferior glenohumeral ligament, which can indicate adhesive capsulitis. There is no evidence of bony contusion. The AC joint is normal in appearance with a type II acromion with no impingement. MRI/Upper Ext Joint Only(Routine) IMPRESSION: There is mild distal supraspinatus tendinopathy with no evidence of rotator cuf f tear. There is thickening of the inferior glenohumeral ligament, which can indicate a dhesive capsulitis. Reading Location: [facility]
== END | disposition home or self-care (01) ==
PROVIDERS: PCP Family Medicine; Referring Provider Orthopaedic Surgery Sports Medicine; Visit Provider Orthopaedic Surgery Sports Medicine
DX: M25.512 Pain in left shoulder (principal)
CPT/HCPCS: 73221